=== PATIENT | female | born 1955 | race Caucasian/White ===

== ENCOUNTER 2017-12-24 00:44 | Inpatient (IN) | payer OTHER ==
[2017-12-24] MEDS ORDERED: Aspirin 81 mg CHEW TAB* 81 MG TAB.CHEW ONE (01:06)
[2017-12-24] MEDS ORDERED: Heparin VIAL(*) 5000 UNITS/ML VIAL (FIVE THOUSAND) ONE (01:06)
[2017-12-24] MEDS ORDERED: Ondansetron INJ* 2 MG/ML VIAL IV ONE (01:10)
[2017-12-24] MEDS ORDERED: Aspirin 81 mg CHEW TAB* 81 MG TAB.CHEW PO ONE (01:10)
[2017-12-24] MEDS ORDERED: Heparin for STEMI(*) 5,000 UNITS/ML 1 ML VIAL IV ONE (01:14)
[2017-12-24 01:28] LABS: ABS Basophils 0.1 10^3/ul (0-0.2); ABS Eosinophils 0.3 10^3/ul (0-0.6); ABS Lymphocytes 3.8 10^3/ul (1.0-4.8); ABS Monocytes 0.5 10^3/ul (0-0.8); ABS Neutrophils 3.9 10^3/ul (1.5-7.7); ABS Nucleated RBC 0 10^3/ul; Eosinophil % 3.1 % (0-6); Hematocrit 30 % (35-47); Hemoglobin 9.9 g/dl (12.0-16.0); Lymphocyte % 44.6 % (25-47); Mean Corpuscular HGB Conc 33 g/dl (31-36); Mean Corpuscular Hemoglobin 27 pg (27-31); Mean Corpuscular Volume 82 fL (80-97); Mean Platelet Volume 7.3 um3 (7.4-10.4); Nucleated Red Blood Cells % 0; Platelet Count 332 10^3/ul (150-450); Red Blood Count 3.64 10^6/ul (4.0-5.4); Red Cell Distribution Width 14 % (10.5-15); White Blood Count 8.6 10^3/ul (3.5-10.8)
[2017-12-24] MEDS ORDERED: Ticagrelor* 90 MG TAB PO ONE ×3 (01:33→01:34)
[2017-12-24 01:40] LABS: INR 0.84 (0.77-1.02)
[2017-12-24] MEDS ORDERED: nitroGLYCERIN DRIP* 25,000 MCG/250 ML BTL ONE ×2 (01:44→02:04)
[2017-12-24 01:47] LABS: EGFR Non-African American 34.4 (>60)
[2017-12-24] MEDS ORDERED: fentaNYL* 50 MCG/ML 2 ML VIAL (100 MCG VIAL) ONE (02:03)
[2017-12-24] MEDS ORDERED: Midazolam* 1 MG/ML 10 ML VIAL (10 MG) ONE (02:03)
[2017-12-24] MEDS ORDERED: Iodixanol* (CONTRAST) 320 MG/ML 100 ML SDV ONE ×4 (02:04→03:24)
[2017-12-24] MEDS ORDERED: Lidocaine 1% INJ* 10 MG/ML 30 ML SDV ONE (02:04)
[2017-12-24] MEDS ORDERED: VERAPAMIL 2.5 MG/ML 2 ML VIAL ** 5 mg/2 ml ONE (02:04)
[2017-12-24] MEDS ORDERED: Heparin 2 UNITS/ML IVPREMIX* 3,000 ML IV ONE (02:04)
[2017-12-24] MEDS ORDERED: Heparin(*) 1000 UNIT/ML 10 ML VIAL CATH LAB IV ONE (02:05)
[2017-12-24] MEDS ORDERED: Bivalirudin(*) 250 MG VIAL ONE (02:16)
[2017-12-24] MEDS ORDERED: Eptifibatide IV (Load dose)(*) 2 MG/ML 10 ml VIAL ONE (02:46)
[2017-12-24] MEDS ORDERED: Eptifibatide (*) 100 ML ONE (02:48)
[2017-12-24] MEDS ORDERED: Adenosine* 3 MG/ML VIAL ONE (03:10)
[2017-12-24] MEDS ORDERED: NitroPRUSSide* 25 MG/ML 2 ML VIAL IVPB ONE (03:12)
[2017-12-24] MEDS ORDERED: Nitroglycerin TAB 0.4 MG* 0.4 MG TAB SL PRN (04:07)
[2017-12-24] MEDS ORDERED: NS 0.9% 1000 ML* 1,000 ML IV SCH (04:15)
[2017-12-24 05:22] LABS: ABS Basophils 0 10^3/ul (0-0.2); ABS Eosinophils 0.1 10^3/ul (0-0.6); ABS Lymphocytes 1.7 10^3/ul (1.0-4.8); ABS Monocytes 0.4 10^3/ul (0-0.8); ABS Neutrophils 7.6 10^3/ul (1.5-7.7); ABS Nucleated RBC 0 10^3/ul; Eosinophil % 0.9 % (0-6); Hematocrit 31 % (35-47); Hemoglobin 10.4 g/dl (12.0-16.0); Lymphocyte % 17.4 % (25-47); Mean Corpuscular HGB Conc 33 g/dl (31-36); Mean Corpuscular Hemoglobin 27 pg (27-31); Mean Corpuscular Volume 82 fL (80-97); Mean Platelet Volume 7.3 um3 (7.4-10.4); Nucleated Red Blood Cells % 0; Platelet Count 352 10^3/ul (150-450); Red Blood Count 3.81 10^6/ul (4.0-5.4); Red Cell Distribution Width 14 % (10.5-15); White Blood Count 9.9 10^3/ul (3.5-10.8)
--- NOTE | 2017-12-24 05:35 | CONSULT ---
Consult Consult: 12/24/17 [id number] HOSPITALIST CONSULT: Requesting Provider: Dr. Alexis Reason for Consultation: medical co-management HPI: Ms Chaudhry is a 62 yo F who has a h/o type II DM, HTN, HLD and hypothyroidism who presented to the ER with c/o CP and diaphoresis. She ate dinner the night prior to admission and developed severe indigestion. She tried tums but it did not go away. She went to bed and then woke up around MN drenched in sweat. She got up to go to the bathroom but felt like she was going to pass out on the way there. She continued to have the CP but felt it in her arms as well. Her brought her to the ER where she was identified to be having a STEMI. She was [facility] emerg[facility] to [facility] where she had [address] Alexis has asked for a hospitalist consult for medical co- management. Currently the patient is feeling tired. She states she does not have chest pain but feels as if she can not take a deep breath. She does not feel SOB. She has no groin pain. PMHx: type II DM, HTN, HLD, hypothyroidism, systolic murmur, PCOS, anemia and stage III CKD PSHx: laprascopic abd surgery, L achilles tendon repair, Csection x3, cholecystectomy, ventral hernia repair, R knee arthroscopic surgery All: epinephrine, codeine Meds: Reviewed and reconciled FamHx: Mom is , she had a h/o CVA, HTN and Alzheimers. Dad is living at 91 and healthy. 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 3 grown children. ROS: As per HPI and otherwise negative. PE: BP 97/53 HR 80 RR 17 T 98.6 O2 sat 97% on 5L gen: well developed middle aged obese female lying flat in bed, NAD HEENT: PERRL, EOMI, oropharynx is clear, oral mucosa is moist, no submandibular , cervical or supraclavicular adenopathy noted. Card: Nl S1 S2 RRR, harsh III/ systolic murmur, no LE edema Pulm: lungs CTA anteriorly Abd: BS+ soft, ND, mild tenderness Musculoskeletal: full UE ROM, LE not tested Skin: warm, dry, no rashes, mild bruising noted on abdominal wall Neuro: CN II-XII intact, sensation intact to light touch, strength not tested at this time. Psych: A&O x3. Labs: WBC 9.9 Hb 10.4 Hct 31 Plt 352 Na 133 K 4.4 Cl 100 CO2 26 BUN 34 Cr 1.32 Gluc 273 AST 173 ALT 30 Alk Phos 33 Trop 0.02 to 22.91 INR 0.84 Chol 167 Trig 188 HDL 45.6 LDL 84 A/P: Ms Chaudhry is a 62 yo F who has a h/o type II DM, HTN, obesity, stage III CKD and HLD who presented to the ER with c/o CP and was identified to be having a STEMI and taken emergently to the [facility]. 1. STEMI: management per Dr Alexis. 2. Type II DM: will continue home regimen except for metformin for now and change diet to heart healthy and consistent carb. She states lately her sugars have not been under optimal control. Will monitor first few finger sticks then make adjustments to her regimen if needed. Check HbA1c. 3. Stage III CKD: Will need to follow creatinine closely. We do not have any recent labs to compare to. Monitor as pt received dye load for cath. 4. HTN: Resume lisinopril and diltiazem CD. Will place hold parameters on the medications. 5. HLD: Continue Lipitor 40mg qHS. 6. Hypothyroidism: Continue home dose of synthroid. TSH is ordered. 7. Anemia of CKD: will follow H/H. No recent labs to compare. 8. DVT-P: per Dr. Alexis 9. Full code
[2017-12-24] MEDS ORDERED: Dextrose 50% Syringe 50 ML* 25 GM/50 ML SYRINGE IV PUSH PRN (05:42)
[2017-12-24 05:44] LABS: EGFR Non-African American 40.8 (>60)
[2017-12-24] MEDS: Levothyroxine TAB* 150 MCG TAB PO SCH (06:23)
--- NOTE | 2017-12-24 07:56 | RAD ---
INDICATION: Chest pain COMPARISON: None. TECHNIQUE: Single AP portable view of the chest was obtained. FINDINGS: Image quality is compromised due to the relative inferiority of a portable chest x-ray. The heart and mediastinum exhibit normal size and contour. The lungs are grossly clear. There is no evidence of a large pleural effusion. Visualized bones are normal for the patient's age. IMPRESSION: No radiographic evidence for acute cardiopulmonary abnormality on this portable chest x-ray.
[2017-12-24] MEDS: Insulin LISPRO* 1 UNITS UNIT SUBCUT SCH ×7 (08:31→21:48)
[2017-12-24] MEDS: Aspirin 81 mg CHEW TAB* 81 MG TAB.CHEW PO SCH (08:32)
[2017-12-24] MEDS: Ticagrelor* 90 MG TAB PO SCH ×2 (08:32→21:19)
[2017-12-24] MEDS: Multivitamins/Minerals TAB PO SCH (08:32)
[2017-12-24] MEDS: Metoprolol Succinate XL TAB* 25 MG PO SCH (08:32)
[2017-12-24] MEDS ORDERED: Lisinopril TAB* 10 MG PO SCH (09:00)
[2017-12-24] MEDS ORDERED: Diltiazem CD CAP* 180 MG PO SCH ×2 (09:00)
[2017-12-24] MEDS: Lisinopril TAB* 10 MG PO SCH (10:57)
--- NOTE | 2017-12-24 12:20 | RAD ---
INDICATION: Shortness of breath. COMPARISON: Comparison is made with a prior study from December 24, 2017 from approximately 10 hours earlier. TECHNIQUE: A portable view of the chest was obtained. FINDINGS: The heart is within normal limits in size. The lungs are underinflated. There are faint patchy infiltrates present in the mid and lower lung medrano. IMPRESSION: NEW BILATERAL PATCHY INFILTRATES.
--- NOTE | 2017-12-24 12:39 | HP ---
CC: Dr. Elia Piedra * ADMISSION HISTORY AND PHYSICAL: DATE OF ADMISSION: 12/24/17 CHIEF COMPLAINT: The patient with chest burning sensation with bilateral arm and back discomfort with diaphoresis. EKG suggesting ST segment elevation, inferior- posterior wall myocardial infarction. HISTORY OF PRESENT ILLNESS: The patient is a 62-year-old female with no prior known history of coronary artery disease. She does reportedly have a history of a heart murmur, for which her family doctor is watching her along; a remote history of an echocardiogram, unobtainable at the time of seeing her. She was in usual state of health and after dinner at 6:30, she started developing an indigestion- type feeling. There was no significant radiation to the throat, jaw, arms, or back at that time. She also felt like she needed to have a bowel movement. These symptoms persisted on and off throughout the evening. She eventually went to bed. Going to bed, she took antacids at bedtime and it did not seem to help. When she woke up around midnight, she still had the indigestion, but now had radiation of the discomfort to her back and to both arms. She was diaphoretic as well. She discussed the symptoms with her and at 12:30 a.m., they decided to go to the emergency room. The initial EKG in the emergency room had subtle ST segment changes, minimally elevated in the inferior leads, not meeting STEMI criteria. There was ST segment downslope in an aVL only. Repeat EKG, however, clearly demonstrated ST segment elevation and a STEMI alert was called. I came in to see her and explained the risks and benefits of proceeding with cardiac catheterization, she understood them and wished to proceed. She had received heparin 4000 units and Brilinta 180 mg and a full-dose aspirin. PAST MEDICAL HISTORY: Significant for insulin-requiring diabetes mellitus. She has a history of hypertension, hypothyroidism, hyperlipidemia, and triglyceridemia. The heart murmurs as mentioned, polycystic kidney disease, ventral hernia, Lyme disease, anemia, osteoarthritis, renal insufficiency. CARDIAC RISK FACTORS: Included diabetes, hypertension, hyperlipidemia. She denied smoking history or significant family history of coronary artery disease. ALLERGIES: She has intolerance to EPINEPHRINE that when she gets at the dentist , she gets shaking and short of breath and it lasts for several minutes. She has an allergy to CODEINE, develops hallucinations. REVIEW OF SYSTEMS: Prior to proceeding to the cardiovascular laboratory, the patient reports a history of renal insufficiency, the exact level of which is unclear, although she was told by one doctor that her kidney was functioning at 35%, where normal was 50 (this may have been actually her GFR). She denies any history of hemoptysis, hematemesis, or hematuria. She has no known allergy to contrast. She has not had a stroke or TIA. PHYSICAL EXAMINATION IN THE EMERGENCY ROOM VITAL SIGNS: Revealed blood pressure 150 to as high as 180 in the emergency room/80-90, pulse was 70-80, respirations 20. HEENT: Conjunctivae minimally pale. Sclerae clear. NECK: Supple without increased JVP. Carotid had bilateral carotid bruit or transmitted murmur. LUNGS: Clear with no active rales, rhonchi, or wheezes. HEART: Revealed no visible heaves, no palpable heaves or thrills. A harsh 3/6 systolic murmur was appreciated. There was a question of splitting of S2 on deep inspiration. ABDOMEN: Obese, soft, nontender. EXTREMITIES: Without significant edema. Peripheral pulses were intact. Femoral pulses noted without bruit. NEUROLOGIC: The patient is alert, oriented with normal mentation. MUSCULOSKELETAL: The patient moves all extremities appropriately. PSYCHOLOGICAL: The patient with appropriate affect for current situation. DIAGNOSTIC STUDIES/LAB DATA: A limited echo done unofficially at bedside showed inferior-posterior wall severe hypo to akinesis. The aortic valve was clearly thickened with restriction to opening, which appeared to be at least moderate in nature. No Doppler was obtainable on the current limited study. Laboratory results were pending at the time of proceeding to the cardiovascular laboratory. EKG #1 in the emergency room revealed sinus rhythm, heart rate 61, T-wave inversion in aVL with slight downsloping, minimally concave upward ST segment in III. EKG #2 showed more increased elevation in lead III and mild increased elevation in II and aVF and V6 with downsloping in I, aVL and ST segment depression seen in V1 and V2. EKG #3 prior to proceeding to the cardiac catheterization lab while this is being set up when the patient stated she felt better, still showed persistent ST segment changes. OVERALL ASSESSMENT: Mrs. Chaudhry now presents in the throes of an acute inferior- posterior wall myocardial infarction. She has appropriately gotten the heparin , aspirin, and Brilinta therapy. Further management will be made pending proceeding to the cardiovascular laboratory. The risks and benefits were explained, she understood them as did her and wished to proceed. [id number]/[facility] #: [id number] SANTY
[2017-12-24] MEDS ORDERED: Furosemide IV* 10 MG/ML 2 ML VIAL (20 MG) IV ONE (13:00)
[2017-12-24] MEDS: Atorvastatin* 40 MG TAB PO SCH (16:37)
[2017-12-24] MEDS ORDERED: Calcium Carbonate CHEW TAB* 500 MG (TUMS) PO PRN (17:17)
--- NOTE | 2017-12-24 19:58 | PN ---
Hospitalist Progress Note Date of Service: 12/24/17 Mrs. Chaudhry is a 62 yo female with a PMH of IDDM, HTN, HLD, who presented to the ER early in the morning today around 1230 am found to have a STEMI taken to the [facility] and is now s/p stent placement. Hospital medicine was asked to co- medical manage. She was seen this morning by Dr. Jacobsen. This evening I was following up for c/o of reflux and abdominal bloating. Patient was seen and evaluated at the bedside. She is found to be A+O x3 in NAD. She reports she was able to pass some gas and now feels better. She reports this is not unusual for her.She reports no BM in 1-2 days and feels constipated. She denies CP/SOB. VSS - review PE: A+O x3 in NAD Cardiac: s1s2, RRR, 3/6 systolic murmur Lungs: CTA b/l Abd: obese, soft, distended, no guarding, no tenderness, NL BS Neuro - no focal deficits noted. Pysch: appropriate Plan: STEMI - cards dispo, stable Diabetes - per nurse and pt her appetite is decreased - plan to reduce Lantus this evening and hold scheduled lispro if eating < 50% of meal Reflux/Abdominal bloating - per pt this is not uncommon for her. She feels better after passing gas. Encourage fluids. bowel regimen. DVTp: HSQ Will follow up in morning.
[2017-12-24] MEDS ORDERED: Docusate CAP* 100 MG PO PRN (20:11)
[2017-12-24] MEDS ORDERED: Insulin GLARGINE(*) 1 UNITS UNIT SUBCUT SCH ×2 (21:00)
[2017-12-24] MEDS: Heparin VIAL(*) 5000 UNITS/ML VIAL (FIVE THOUSAND) SUBCUT SCH (21:19)
[2017-12-24] MEDS ORDERED: Insulin LISPRO* 1 UNITS UNIT SUBCUT ONE (21:46)
[2017-12-25] MEDS: Levothyroxine TAB* 150 MCG TAB PO SCH (06:12)
[2017-12-25] MEDS: Heparin VIAL(*) 5000 UNITS/ML VIAL (FIVE THOUSAND) SUBCUT SCH ×3 (06:12→21:09)
[2017-12-25 06:46] LABS: ABS Basophils 0.1 10^3/ul (0-0.2); ABS Eosinophils 0 10^3/ul (0-0.6); ABS Neutrophils 9.9 10^3/ul (1.5-7.7); ABS Nucleated RBC 0 10^3/ul; Eosinophil % 0.3 % (0-6); Hematocrit 30 % (35-47); Hemoglobin 9.8 g/dl (12.0-16.0); Lymphocyte % 15.5 % (25-47); Mean Corpuscular HGB Conc 33 g/dl (31-36); Mean Corpuscular Hemoglobin 27 pg (27-31); Mean Corpuscular Volume 81 fL (80-97); Mean Platelet Volume 7.4 um3 (7.4-10.4); Nucleated Red Blood Cells % 0.1; Platelet Count 314 10^3/ul (150-450); Red Blood Count 3.64 10^6/ul (4.0-5.4); Red Cell Distribution Width 14 % (10.5-15)
[2017-12-25 07:04] LABS: EGFR Non-African American 42.6 (>60)
[2017-12-25] MEDS: Insulin LISPRO* 1 UNITS UNIT SUBCUT SCH ×7 (08:02→21:08)
[2017-12-25] MEDS: Ticagrelor* 90 MG TAB PO SCH ×2 (08:19→21:09)
[2017-12-25] MEDS: Lisinopril TAB* 10 MG PO SCH (08:20)
[2017-12-25] MEDS: Metoprolol Succinate XL TAB* 25 MG PO SCH ×2 (08:20→21:09)
[2017-12-25] MEDS: Multivitamins/Minerals TAB PO SCH (08:20)
[2017-12-25] MEDS: Aspirin 81 mg CHEW TAB* 81 MG TAB.CHEW PO SCH (08:20)
[2017-12-25] MEDS ORDERED: Perflutren Lipid Microsphere* 3 ML VIAL ONE (08:36)
--- NOTE | 2017-12-25 11:00 | ECHO ---
Patient: LEXX REINOSO [facility] Rec#: [id number] : 1955 Date: 12/25/2017 Age: 62y Weight: kg / NaN lbs Sex: F Room#: ICU 6 Admit Date#: 12/25/2017 Type: Inpatient Referring: Paul Alexis MD Reading: Paul Alexis MD Filler Shredder Machine: Alyssa Zayas RN [facility] Transthoracic Echocardiogram Indication: Inferior/posterior wall STEMI S/P PCI, Aortic stenosis BP: 130/66 HR: 83 Rhythm: NSR with PVCs Findings History: HTN, DM, HLD, hypothyroidism, , anemia, CKD, obesity Technical Comments: The study quality is fair. The study is technically limited due to patient body habitus. Left Ventricle: The left ventricular chamber size is normal. Moderate concentric left ventricular hypertrophy is observed. There is a focal wall motion abnormality present.There is virtual akinesis to the mid to low posterolateral wall. There is moderately decreased left ventricular systolic function. The estimated ejection fraction is 40-45%. Abnormal left ventricular diastolic function is observed. Left Atrium: The left atrium is moderate to severely dilated. Right Ventricle: The right ventricular cavity size is normal. The right ventricular global systolic function is low normal. Right Atrium: The right atrial cavity size is normal. Aortic Valve: The aortic valve is trileaflet. The aortic valve leaflets are moderately thickened. Systolic excursion of the aortic valve cusps is reduced. There is aortic annular calcification. There is mild aortic regurgitation. There is severe aortic stenosis. The mean gradient of the aortic valve is 42.3 mmHg. The peak instantaneous gradient of the aortic valve is 70.2 mmHg. The aortic valve area, by peak velocities, is calculated at 0.8 cm2. The aortic valve area, by VTI's, is calculated at 0.7 cm2. Highest aortic valve velocity was acquired with Pedoff in right sternal border position. Mitral Valve: Moderate mitral annular calcification present. The mitral valve leaflets are mildly thickened. There is mild mitral regurgitation. There is mild mitral stenosis. The mean gradient across the mitral valve is 3.9 mmHg. Tricuspid Valve: The tricuspid valve leaflets are not thickened. There is trace to mild tricuspid regurgitation. Unable to estimate the right ventricular systolic pressure. There is no tricuspid stenosis. Pulmonic Valve: The pulmonic valve structure is not well visualized. There is a trace pulmonic regurgitation. There is no pulmonic stenosis. Pericardium: There is no significant pericardial effusion. A pericardial fat pad is visualized. Aorta: There is no dilatation of the ascending aorta. There is no dilatation of the aortic arch. There is no dilation of the aortic root. Pulmonary Artery: The main pulmonary artery is not well visualized. Venous: The inferior vena cava is dilated. There is a greater than 50% respiratory change in the inferior vena cava dimension. Contrast: Definity was used to optimize study. A total of 5 ml of diluted Definity was given IV. Conclusions Moderate concentric left ventricular hypertrophy is observed. There is a focal wall motion abnormality present.There is virtual akinesis to the mid to low posterolateral wall. There is moderately decreased left ventricular systolic function. The estimated ejection fraction is 40-45%. Abnormal left ventricular diastolic function is observed. The left atrium is moderate to severely dilated. There is mild aortic regurgitation. There is severe aortic stenosis. The mean gradient of the aortic valve is 42.3 mmHg. The aortic valve area, by peak velocities, is calculated at 0.8 cm2. There is mild mitral regurgitation. There is mild mitral stenosis. The mean gradient across the mitral valve is 3.9 mmHg. There is trace to mild tricuspid regurgitation. No reports of prior studies are offered for comparison. There is a trace pulmonic regurgitation. Measurements Name Value Normal Range RVDdMajor (2D) 3.2 cm (2.2 - 4.4) RAd ISD 4CH 4.9 cm (3.4 - 4.9) RA (A4C)W 4 cm (2.9 - 4.6) IVSd (2D) 1.5 cm (0.6 - 1) LVPWd (2D) 1.2 cm (0.6 - 1) LVIDd (2D) 4.6 cm (3.6 - 5.4) LVIDs (2D) 3.9 cm - LV FS (2D) 15 % (25 - 45) Aortic Annulus 2.2 cm (1.4 - 2.6) Ao root diameter (2D) 2.8 cm (2.1 - 3.5) Ascending Ao 3.1 cm (2.1 - 3.4) Aortic arch 2.6 cm (1.8 - 3.4) LA dimension (AP) 2D 4.3 cm (2.3 - 3.8) LAd ISD 4CH 5.7 cm (2.9 - 5.3) LA ISD 4CH W 5.4 cm (2.5 - 4.5) Name Value Normal Range LA ESV SP 4CH (A/L) 118 ml - LA ESV SP 2CH (A/L) 113 ml - LA ESV BP (A/L) 119 ml - LA ESV BP (A/L) index 58.8 ml/m2 - LA ESV SP 4CH (MOD) 114 ml - LA ESV SP 2CH (MOD) 105 ml - Name Value Normal Range MV E-wave Vmax 1.4 m/sec - MV deceleration time 199 msec - MV A-wave Vmax 1.2 m/sec - MV E:A ratio 1.2 ratio - LV septal e' Vmax 0.06 m/sec - LV lateral e' Vmax 0.06 m/sec - LV E:e' septal ratio 23.3 ratio - LV E:e' lateral ratio 23.3 ratio - Name Value Normal Range AV Vmax 4.2 m/sec - AV VTI 96.9 cm - AV peak gradient 70.2 mmHg - AV mean gradient 42.3 mmHg - LVOT diameter 2 cm - LVOT Vmax 1 m/sec - LVOT VTI 21.8 cm - LVOT peak gradient 4.3 mmHg - LVOT mean gradient 2.4 mmHg - DOI (VTI) 0.22 ratio - DOI (Vmax) 0.24 ratio - KASANDRA (continuity Vmax) 0.8 cm2 - KASANDRA (continuity VTI) 0.7 cm2 - DORI Vmax 1.1 m/sec - Name Value Normal Range MV Vmax 1.6 m/sec - MV VTI 40.4 cm - MV peak gradient 10.7 mmHg - MV mean gradient 3.9 mmHg - MV PHT 77.3 msec - MVA (PHT) 2.8 cm2 - MVA (continuity VTI) 1.8 cm2 - Name Value Normal Range IVC diameter 2.4 cm - Name Value Normal Range PV Vmax 0.72 m/sec -
[2017-12-25] MEDS ORDERED: Potassium Chlor TAB* 20 MEQ TAB.ER PO ONE (11:46)
[2017-12-25] MEDS ORDERED: Magnesium Sulfate 2 GM IV* 2 GM/50 ML BAG IVPB ONE (13:28)
[2017-12-25] MEDS ORDERED: Magnesium Oxide TAB* 400 MG PO ONE (13:49)
--- NOTE | 2017-12-25 13:56 | CATH ---
ADDENDUM: CARDIAC CATHETERIZATION AND INTERVENTIONAL REPORT: DATE OF PROCEDURE: 12/24/17 A. Thrombectomy, balloon angioplasty, and placement of a 3.5 x 28 mm long Synergy drug-eluting stent post dilated at 3.7 mm reconstituting 100% occlusion with residual stenosis of less than 10% with TI NE 2 to 3 flow. B. Primary stenting of mid portion of first obtuse marginal branch utilizing a 2.75 x 16 mm long Syn ergy drug-eluting stent dilated to high pressures to obtain 2.85 mm with 0% residual stenosis with TI NE 2 to 3 flow. Of note, possible distal cutoff still noted in the furthest portion of the upper bif urcating portion despite giving Integrilin bolus and Integrilin drip in the director geophysical laboratory. OVERALL ASSESSMENT: Significant single-vessel disease involving totally occluded proximal circumflex with heavy thrombotic, possibly dissected occlusion treated with thrombectomy, balloon angioplasty a nd stenting in multiple sites with congregational of GARRY 2 to 3 flow, but not complete GARRY 3 flow and possible distal obstruction to furthest portion of circumflex. At this point in time, we will contin ue dual antiplatelet therapy and will be managing hemodynamics and possible presence of congestive he art failure in the setting of at least [id number] aortic stenosis noted on left heart pullbac k performed during left coronary artery catheter placement. We will get a formal echo to assess LV f unction and aortic valve function within the next 24 to 48 hours. Of note, given the patient's histo ry of renal insufficiency, we will continue hydration for hours and monitor closely the BUN and creat inine on her. She is an insulin-requiring diabetic, who is also on metformin, which obviously will n ot be restarted. We will ask the hospitalist to manage her diabetes. We will check her cholesterol and make sure it is within guideline range and maintain her on her current statin agent. We will hol d off on the MATT inhibitor at this point given the contrast given as well as the fact that she is a d iabetic and that she has renal insufficiency until we see how her creatinine stabilizes and how sever e her aortic stenosis is. [id number]/[facility] #: [id number]
--- NOTE | 2017-12-25 15:36 | CATH ---
CC: Dr. Elia Piedra* CARDIAC CATHETERIZATION REPORT: DATE OF PROCEDURE: 12/24/17 INDICATION FOR THE PROCEDURE: The patient presents with ST segment elevation inferior-posterior wall myocardial infarction. PROCEDURE: Coronary arteriography, left heart catheterization, balloon angioplasty, thrombectomy, placement of a 3.5 x 28 mm long Synergy drug- eluting stent post dilated to 3.7 mm in the proximal circumflex into the first obtuse marginal branch and placement of a 2.75 x 16 mm long Synergy drug- eluting stent in the mid portion of the first obtuse marginal branch and then Mynx closure device to the right femoral artery site. DESCRIPTION OF PROCEDURE: The patient was interviewed and examined in the emergency room where the risks and benefits were explained. She understood them and wished to proceed. MEDICATIONS GIVEN: 4000 units of heparin, 324 mg of aspirin, and 108 mg of ticagrelor in the emergency room prior to presenting to the veterinary laboratory technician. Angiomax bolus and a transient Integrilin drip for persistent thrombotic occlusion. Nipride and adenosine locally delivered to distal first obtuse marginal branch for no-flow phenomenon. EQUIPMENT UTILIZED: 1. Right femoral sheath - 6.5 Bangladeshi Merit Prelude sheath. 2. Diagnostic coronary catheter FL 4 curve 5-Bangladeshi and FR 4 curve 5-Bangladeshi catheters. 3. Guiding view catheter a VL 3.5 curve 6-Bangladeshi guide catheter with side holes. 4. Guidewires utilized - a 190 and 300 length All-Star in addition to a BMW regular length. 5. Thrombectomy catheter, a Pronto V4 extraction catheter. 6. Balloon angioplasty catheters Emerge 1.5 x 12 and a 3.5 x 20 balloon. 7. Drug-eluting stents - 3.5 x 28 mm long Synergy in the proximal circumflex into the first obtuse marginal branch, 2.75 x 60 mm long Synergy drug-eluting stent in the mid portion of the first obtuse marginal branch. 8. Distal perfusion catheter for local drug administration - Twin-Pass micro catheter. 9. Closure device utilized - a 6/7 Bangladeshi Mynx closure device. PROCEDURE IN DETAIL: The patient was prepped and draped in sterile fashion. Formal time-out was performed. The right femoral artery area was anesthetized with 1% lidocaine and cannulated and sheath was placed. Diagnostic imaging was performed to the left and the right coronary artery following which decision was made to intervene into the totally occluded proximal circumflex. Guiding catheter was passed. ACT was checked and found to be subtherapeutic. Angiomax bolus was given and Angiomax drip was started. Initial attempts were made utilizing a 190cm length guide wire and were not able to pass across the occlusion. This was exchanged for an exchange length guide wire and utilizing a 1.5 x 12 mm long Emerge balloon for extra support the wire was able to be placed through the total occlusion. Balloon angioplasty was performed in the initial area, but faith of flow was not successful. Decision was made to pursue thrombectomy and a Pronto V4 catheter was utilized for this. Following this, there was flow noted albeit a GARRY 1 flow and the area appeared to be outlined in the proximal stenotic airway. Balloon angioplasty was then performed with a 3.5 x 28 mm long Emerge balloon. Following this, flow had improved to GARRY 1 to 2 flow. A Twin-Pass catheter was then placed to give local delivery of Nipride cautiously. Follow this, an area was defined in the mid segment of the obtuse marginal branch with compromise and this area was primary stented utilizing a 2.75 x 16 mm long Synergy drug-eluting stent. This distal stent was deployed to very high pressures. Following this, the high- pressure inflations were made to the more proximal stented area. Of note, following this, adenosine was also administered intracoronary in an attempt to improve flow which appeared to improve to at least GARRY 2 to 3 flow. At the end of the case, an injection was made into the right femoral sheath to assess the eligibility to utilize closure device. It was found to be a acceptable for this and as such a 6/7 Bangladeshi Mynx closure device was deployed with good hemostasis. The total contrast used was 278 cc of Visipaque dye. The radiation exposure included 23.1 minutes of fluoro time. The air kerma radiation was 3828 mGy. The DAP radiation was 22,888 microgray per meter squared. RESULTS: LEFT HEART CATHETERIZATION: - of note, when proceeding with left coronary arteriography, the left coronary catheter was initially found to be in the left ventricle. At that time , the decision was made to record the pressure and then perform pullback. The left ventricular pressure was found to be 190 over the left ventricular end diastolic pressure of 35 to 40. Left ventricular pressure on pullback was found to be 157/76 with a mean of 112. CORONARY ARTERIOGRAPHY: A. Left coronary artery: 1. Left main - widely patent with no significant stenosis. 2. Left anterior descending artery - the left anterior descending artery traversed toward the apical region on to the distal inferior wall. The midportion of the left anterior descending artery was intramyocardial. There was no profound muscle bridging noted. There was no significant obstruction seen throughout the course of the vessel. It supplied a first and second diagonal branch, which appeared to be somewhat thin, small in caliber, but no significant stenosis was seen throughout the course of these vessels. 3. Circumflex artery - totally occluded at its ostium on initial injection. A trifurcation marginal branch was noted without significant disease. On reconstitution of the circumflex vessel, it supplied a very large first obtuse marginal branch after which it continued in the AV groove to supply distally, very small caliber, thread-like, low lying posterior left ventricular branches that were somewhat short in nature. B. Right coronary artery - a dominant vessel supplying the PDA, which extended towards the apical region, but not fully to it. The continuation of the right coronary supplied small thread-like posterior left ventricular branches. There were no significant luminal irregularities noted. Of note with all the coronary arteries, there was corkscrew appearance to them suggesting the presence of left ventricular hypertrophy. INTERVENTION INTO TOTALLY OCCLUDED PROXIMAL CIRCUMFLEX: A. Thrombectomy, balloon angioplasty, and placement of a 3.5 x 28 mm long Synergy drug-eluting stent post dilated at 3.7 mm reconstituting 100% occlusion with residual stenosis of less than 10% with GARRY 2 to 3 flow. B. Primary stenting of mid portion of first obtuse marginal branch utilizing a 2.75 x 16 mm long Synergy drug-eluting stent dilated to high pressures to obtain 2.85 mm, reducing a hazy 85% lesion to 0% residual stenosis with eventual GARRY 2 to 3 flow. Of note, distal cutoff was still noted in the furthest portion of the upper bifurcating portion despite giving Integrilin bolus and Integrilin drip in the veterinary laboratory technician. OVERALL ASSESSMENT: Significant single-vessel disease involving totally occluded proximal circumflex with heavy thrombotic, possibly dissected occlusion treated with thrombectomy, balloon angioplasty and stenting in multiple sites with faith of GARRY 2 to 3 flow, but not complete GARRY 3 flow and possible distal obstruction to furthest portion of circumflex. At this point in time, we will continue dual antiplatelet therapy and will be managing hemodynamics and possible presence of congestive heart failure in the setting of at least odriinqd-qm-lcyzld aortic stenosis noted on left heart pullback performed during left coronary artery catheter placement. We will get a formal echo to assess LV function and aortic valve function within the next 24 to 48 hours. Of note, given the patient's history of renal insufficiency, we will continue hydration for hours and monitor closely the BUN and creatinine on her. She is an insulin-requiring diabetic, who is also on metformin, which obviously will not be restarted. We will ask the hospitalist to manage her diabetes. We will check her cholesterol and make sure it is within guideline range and maintain her on her current statin agent. We will hold off on the MATT inhibitor at this point given the contrast given as well as the fact that she is a diabetic and that she has renal insufficiency until we see how her creatinine stabilizes and how severe her aortic stenosis is. [id number]/[facility] #: [id number]/[facility] #: [id number] SANTY
[2017-12-25] MEDS: Atorvastatin* 40 MG TAB PO SCH (17:43)
--- NOTE | 2017-12-25 18:24 | PN ---
Subjective Date of Service: 12/25/17 Interval History: Patient reports she feels much much better. She states she feels a little fatigued and quite a 100% yet but overall feels "pretty good". She denies CP or SOB. reports her appetiet is improving. her abdominal bloating and gas has improved. Still no BM today. Objective Active Medications: Aspirin (Aspirin 81 Mg Chew Tab*) 81 mg PO DAILY [facility] Last Admin: 12/25/17 08:20 Dose: 81 mg Atorvastatin Calcium (Lipitor*) 40 mg PO 1700 [facility] Last Admin: 12/25/17 17:43 Dose: 40 mg Calcium Carbonate (Tums*) 500 mg PO Q4H PRN PRN Reason: INDIGESTION Last Admin: 12/24/17 17:45 Dose: 500 mg Dextrose (D50w Syringe 50 Ml*) 12.5 gm IV PUSH .FOR FS < 60 - SS PRN PRN Reason: FS < 60 Docusate Sodium (Colace Cap*) 100 mg PO DAILY PRN PRN Reason: CONSTIPATION Heparin Sodium (Porcine) (Heparin Vial(*)) 5,000 units SUBCUT Q8HR [facility] Last Admin: 12/25/17 13:00 Dose: 5,000 units Sodium Chloride (Ns 0.9% 1000 Ml*) 1,000 mls @ 0 mls/hr IV .per rate [facility] PRN Reason: KVO Last Admin: 12/24/17 06:23 Dose: 100 mls/hr Insulin Glargine (Lantus(*)) 30 units SUBCUT BEDTIME [facility] Last Admin: 12/24/17 21:18 Dose: 30 units Insulin Human Lispro (Humalog*) 10 units SUBCUT AC [facility] Last Admin: 12/25/17 17:42 Dose: 10 units Insulin Human Lispro (Humalog*) 0 units SUBCUT ACHS [facility] PRN Reason: Protocol Last Admin: 12/25/17 17:41 Dose: 6 units Levothyroxine Sodium (Synthroid Tab*) 150 mcg PO DAILY@0600 [facility] Last Admin: 12/25/17 06:12 Dose: 150 mcg Lisinopril (Prinivil Tab*) 20 mg PO DAILY [facility] Last Admin: 12/25/17 08:20 Dose: 20 mg Metoprolol Succinate (Toprol Xl Tab*) 25 mg PO BID [facility] Multivitamins/Minerals (Theragran/Minerals Tab*) 1 tab PO DAILY [facility] Last Admin: 12/25/17 08:20 Dose: 1 tab Nitroglycerin (Nitroglycerin Tab 0.4 Mg*) 0.4 mg SL Q5M PRN PRN Reason: ANGINA Ticagrelor (Brilinta*) 90 mg PO BID [facility] Last Admin: 12/25/17 08:19 Dose: 90 mg Vital Signs - 8 hr 12/25/17 12/25/17 12/25/17 11:00 12:00 13:00 Temperature 98 F Pulse Rate 77 92 85 Respiratory 21 20 15 Rate Blood Pressure 145/77 141/77 139/72 (mmHg) O2 Sat by Pulse 93 94 97 Oximetry 12/25/17 12/25/17 12/25/17 14:00 14:01 15:00 Temperature Pulse Rate 77 84 80 Respiratory 14 15 19 Rate Blood Pressure 129/82 132/61 (mmHg) O2 Sat by Pulse 97 97 94 Oximetry 12/25/17 12/25/17 12/25/17 16:00 16:04 16:06 Temperature 98.2 F Pulse Rate 84 Respiratory 21 21 21 Rate Blood Pressure 134/72 (mmHg) O2 Sat by Pulse 99 Oximetry 12/25/17 12/25/17 12/25/17 17:00 17:01 18:00 Temperature Pulse Rate 81 80 81 Respiratory 22 17 19 Rate Blood Pressure 130/71 (mmHg) O2 Sat by Pulse 97 97 95 Oximetry Oxygen Devices in Use Now: None Appearance: 62 yo female sitting up in a chair in NAD. A+Ox3 Eyes: No Scleral Icterus, PERRLA Ears/Nose/Mouth/Throat: NL Teeth, Lips, Gums, Mucous Membranes Moist Neck: NL Appearance and Movements; NL JVP Respiratory: Symmetrical Chest Expansion and Respiratory Effort, Clear to Auscultation Cardiovascular: RRR, No Edema, - - 3/6 systolic murmur noted Abdominal: NL Sounds; No Tenderness; No Distention Extremities: No Edema, No Clubbing, Cyanosis Skin: No Rash or Ulcers, No Nodules or Sclerosis Neurological: Alert and Oriented x 3, NL Sensation, NL Gait, NL Muscle Strength and Tone Lines/Tubes/Other Access: Clean, Dry and Intact Peripheral IV Nutrition: Taking PO's Result Diagrams: 12/25/17 06:28 12/25/17 06:28 Microbiology and Other Data: Microbiology 12/24/17 05:14 Nasal Screen MRSA (PCR)(IGOR) - Final Nasal Mrsa Not Detected Assess/Plan/Problems-Billing Assessment: 62 yo female with PMH of DM II, HTN, HLD, hypothyroidism and obesity that presented on 12/24 with c/o CP and diaphoresis found to have a STEMI - inferior-posterior wall PA and taken emergently to the greens laborer where she had two stents placed - - Patient Problems (1) STEMI (ST elevation myocardial infarction) Comment: - overall doing very well. - totally occluded proximal circumflex s/p thrombectomy, balloon angioplasty with placement of 2 drug eluding stents placed. -Echo showing EF 40-45% with diastolic dysfunction, severe - continue dual anti-platelet therapy with ASA & Brilinta, BB, statin, (2) Severe aortic stenosis Comment: - Pt has been fairly asymptomatic to this and reports she exerts herself heavily w/o SOB. - She will need to follow closely with cardiology as an outpt and at some point she will reuqire a AVR (3) Transaminitis Comment: - To be expected in the setting of stemi - Hepatitis panel - nonreactive - recheck in am (4) Diabetes Comment: - HgA1C 10.4 - Hold home oral metformin - Continue Lispro SS AC&HS and 10 units with meals (hold if eating <50% of meals ) - Lantus 40 units QHS (54 units at home) (5) HLD (hyperlipidemia) Comment: - continue statin (6) HTN (hypertension) Comment: - controlled. Hold home Lisinopril and cardizem. Metoprolol started by cardiology (7) CKD (chronic kidney disease) Comment: - Do not know baseline creatinine. Creatinine 1.3. recheck in am (8) Hypothyroid Comment: - continue synthroid (9) DVT prophylaxis Comment: HSQ Status and Disposition: inpatient. Continue ICCU with plan per Cards to tx to tele tomorrow.
[2017-12-25] MEDS ORDERED: Insulin GLARGINE(*) 1 UNITS UNIT SUBCUT SCH (21:00)
[2017-12-26] MEDS: Levothyroxine TAB* 150 MCG TAB PO SCH (05:52)
[2017-12-26] MEDS: Heparin VIAL(*) 5000 UNITS/ML VIAL (FIVE THOUSAND) SUBCUT SCH ×3 (05:52→20:53)
[2017-12-26 06:36] LABS: EGFR Non-African American 38.7 (>60)
[2017-12-26] MEDS: Insulin LISPRO* 1 UNITS UNIT SUBCUT SCH ×7 (08:12→20:47)
[2017-12-26] MEDS: Metoprolol Succinate XL TAB* 25 MG PO SCH ×2 (09:05→20:53)
[2017-12-26] MEDS: Ticagrelor* 90 MG TAB PO SCH ×2 (09:05→20:53)
[2017-12-26] MEDS: Aspirin 81 mg CHEW TAB* 81 MG TAB.CHEW PO SCH (09:06)
[2017-12-26] MEDS: Multivitamins/Minerals TAB PO SCH (09:06)
[2017-12-26] MEDS: Atorvastatin* 40 MG TAB PO SCH (17:02)
--- NOTE | 2017-12-26 17:07 | PN ---
Subjective Date of Service: 12/26/17 Interval History: patient reports she feels "even better today" and hopes to go home tomorrow. She denies SOB/CP. reports her abdominal bloating is much better and had a BM today. Reports her appetite is improving. Objective Active Medications: Aspirin (Aspirin 81 Mg Chew Tab*) 81 mg PO DAILY [facility] Last Admin: 12/26/17 09:06 Dose: 81 mg Atorvastatin Calcium (Lipitor*) 40 mg PO 1700 [facility] Last Admin: 12/26/17 17:02 Dose: 40 mg Calcium Carbonate (Tums*) 500 mg PO Q4H PRN PRN Reason: INDIGESTION Last Admin: 12/24/17 17:45 Dose: 500 mg Dextrose (D50w Syringe 50 Ml*) 12.5 gm IV PUSH .FOR FS < 60 - SS PRN PRN Reason: FS < 60 Docusate Sodium (Colace Cap*) 100 mg PO DAILY PRN PRN Reason: CONSTIPATION Heparin Sodium (Porcine) (Heparin Vial(*)) 5,000 units SUBCUT Q8HR [facility] Last Admin: 12/26/17 15:04 Dose: 5,000 units Insulin Glargine (Lantus(*)) 54 units SUBCUT BEDTIME [facility] Insulin Human Lispro (Humalog*) 0 units SUBCUT ACHS [facility] PRN Reason: Protocol Last Admin: 12/26/17 16:58 Dose: Not Given Insulin Human Lispro (Humalog*) 10 units SUBCUT AC [facility] Last Admin: 12/26/17 17:01 Dose: 10 units Levothyroxine Sodium (Synthroid Tab*) 150 mcg PO DAILY@0600 [facility] Last Admin: 12/26/17 05:52 Dose: 150 mcg Metoprolol Succinate (Toprol Xl Tab*) 25 mg PO BID [facility] Last Admin: 12/26/17 09:05 Dose: 25 mg Multivitamins/Minerals (Theragran/Minerals Tab*) 1 tab PO DAILY [facility] Last Admin: 12/26/17 09:06 Dose: 1 tab Nitroglycerin (Nitroglycerin Tab 0.4 Mg*) 0.4 mg SL Q5M PRN PRN Reason: ANGINA Ticagrelor (Brilinta*) 90 mg PO BID [facility] Last Admin: 12/26/17 09:05 Dose: 90 mg Vital Signs - 8 hr 0512/26/17 12/26/17 10:00 10:01 11:00 Temperature Pulse Rate 74 74 72 Respiratory 14 20 16 Rate Blood Pressure 98/46 105/56 (mmHg) O2 Sat by Pulse 97 97 95 Oximetry 12/26/17 12/26/17 12/26/17 12:00 12:01 13:00 Temperature 98.5 F Pulse Rate 73 73 Respiratory 15 13 13 Rate Blood Pressure 94/42 (mmHg) O2 Sat by Pulse 94 96 Oximetry 12/26/17 12/26/17 12/26/17 14:08 14:30 16:50 Temperature 97.3 F 99.7 F Pulse Rate 74 69 Respiratory 93 19 18 Rate Blood Pressure 99/46 97/55 (mmHg) O2 Sat by Pulse 99 100 Oximetry Oxygen Devices in Use Now: None Appearance: obese 62 yo female sitting up in a chair eating dinner in NAD. A+O x3 Eyes: No Scleral Icterus, PERRLA Ears/Nose/Mouth/Throat: NL Teeth, Lips, Gums, Mucous Membranes Moist Neck: NL Appearance and Movements; NL JVP Respiratory: Symmetrical Chest Expansion and Respiratory Effort, Clear to Auscultation Cardiovascular: RRR, No Edema, - - 3/6 systolic murmur Abdominal: NL Sounds; No Tenderness; No Distention, - - obese Extremities: No Edema, No Clubbing, Cyanosis Skin: No Rash or Ulcers, No Nodules or Sclerosis Neurological: Alert and Oriented x 3, NL Sensation, NL Gait, NL Muscle Strength and Tone Lines/Tubes/Other Access: Clean, Dry and Intact Peripheral IV Nutrition: Taking PO's Result Diagrams: 12/25/17 06:28 12/26/17 06:00 Microbiology and Other Data: Microbiology 12/24/17 05:14 Nasal Screen MRSA (PCR)([facility]) - Final Nasal Mrsa Not Detected Assess/Plan/Problems-Billing Assessment: 62 yo female with PMH of DM II, HTN, HLD, hypothyroidism and obesity that presented on 12/24 with c/o CP and diaphoresis found to have a STEMI - inferior-posterior wall CT and taken emergently to the circus laborer where she had two stents placed - - Patient Problems (1) STEMI (ST elevation myocardial infarction) Comment: - overall doing very well. - totally occluded proximal circumflex s/p thrombectomy, balloon angioplasty with placement of 2 drug eluding stents placed. -Echo showing EF 40-45% with diastolic dysfunction, severe (NEW DX) - continue dual anti-platelet therapy with ASA & Brilinta, BB, statin, (2) Severe aortic stenosis Comment: - Pt has been fairly asymptomatic to this and reports she exerts herself heavily w/o SOB. - She will need to follow closely with cardiology as an outpt and at some point she will reuqire a AVR (3) Transaminitis Comment: - To be expected in the setting of stemi - trending down (4) Diabetes Comment: - HgA1C 10.4 - Hold home oral metformin - Continue Lispro SS AC&HS and 10 units with meals - Restart Lantus 54 units home dose tonight - [facility] (5) HLD (hyperlipidemia) Comment: - continue statin (6) HTN (hypertension) Comment: - controlled. Hold home Lisinopril and cardizem. Metoprolol started by cardiology (7) CKD (chronic kidney disease) Comment: - Do not know baseline creatinine. Creatinine 1.3, stable. (8) Hypothyroid Comment: - continue synthroid (9) DVT prophylaxis Comment: HSQ Status and Disposition: inpatient. Dispo per Interventional Cardiology.
[2017-12-26] MEDS ORDERED: Insulin GLARGINE(*) 1 UNITS UNIT SUBCUT SCH (21:00)
[2017-12-27] MEDS: Heparin VIAL(*) 5000 UNITS/ML VIAL (FIVE THOUSAND) SUBCUT SCH ×2 (05:46→14:08)
[2017-12-27] MEDS: Levothyroxine TAB* 150 MCG TAB PO SCH (05:46)
[2017-12-27 07:31] LABS: ABS Basophils 0.1 10^3/ul (0-0.2); ABS Eosinophils 0.2 10^3/ul (0-0.6); ABS Lymphocytes 2.4 10^3/ul (1.0-4.8); ABS Monocytes 0.9 10^3/ul (0-0.8); ABS Neutrophils 6.6 10^3/ul (1.5-7.7); ABS Nucleated RBC 0 10^3/ul; Eosinophil % 2.2 % (0-6); Hematocrit 26 % (35-47); Hemoglobin 8.9 g/dl (12.0-16.0); Lymphocyte % 23.3 % (25-47); Mean Corpuscular HGB Conc 34 g/dl (31-36); Mean Corpuscular Hemoglobin 28 pg (27-31); Mean Corpuscular Volume 82 fL (80-97); Mean Platelet Volume 7.4 um3 (7.4-10.4); Nucleated Red Blood Cells % 0.1; Platelet Count 316 10^3/ul (150-450); Red Cell Distribution Width 14 % (10.5-15); White Blood Count 10.1 10^3/ul (3.5-10.8)
[2017-12-27] MEDS: Insulin LISPRO* 1 UNITS UNIT SUBCUT SCH ×4 (07:35→12:28)
[2017-12-27 07:39] LABS: EGFR Non-African American 33.6 (>60)
[2017-12-27] MEDS: Multivitamins/Minerals TAB PO SCH (09:04)
[2017-12-27] MEDS: Aspirin 81 mg CHEW TAB* 81 MG TAB.CHEW PO SCH (09:04)
[2017-12-27] MEDS: Metoprolol Succinate XL TAB* 25 MG PO SCH (09:04)
[2017-12-27] MEDS: Ticagrelor* 90 MG TAB PO SCH (09:04)
[2017-12-27 12:41] VITALS: BP 100/52
--- NOTE | 2017-12-28 10:03 | DS ---
CC: Dr. Piedra; Dr. Alexis * DISCHARGE SUMMARY: DATE OF ADMISSION: 12/24/17. DATE OF DISCHARGE: 12/27/17. PRIMARY CARE PHYSICIAN: Dr. Piedra. RAIL OPERATIONS CONTROLLER: Dr. Alexis. DISCHARGE DIAGNOSES: 1. Acute inferior-posterior wall ST elevation infarct. 2. Aortic stenosis. 3. Diabetes type 2. 4. Obesity. 5. Hypertension. 6. Dyslipidemia. 7. Chronic kidney disease, stage III. 8. History of Lyme disease. 9. Chronic anemia. CONDITION ON DISCHARGE: Stable. PROCEDURES: Cardiac cath, stent placement in circumflex, Dr. Alexis, 3.5 x 28 Synergy stent circumflex, 2.75 x 16 Synergy drug-eluting stent OM1, right common femoral artery, MynxGrip closure, echocardiogram, telemetry. Consultation with the hospitalist service for diabetic management. CONDITION ON DISCHARGE: Stable. DISCHARGE INSTRUCTIONS: Wound care, shower only for 3 days, to avoid strenuous exertion for 1 week, to walk 30 minutes daily, followup wound check with Dr. Alexis, 01/01/18 at 1520 p.m. Blood test on Saturday, 12/30, result faxed to Dr. Alexis. Do not resume metformin until told to do so. DISCHARGE MEDICATIONS: New medication: 1. Metoprolol XL 25 mg b.i.d. 2. Brilinta 90 mg b.i.d. 3. Nitroglycerin 0.4 sublingual p.r.n. 4. To continue Lipitor 40 mg daily. 5. Aspirin 81 mg daily. 6. Calcium carbonate. 7. Fenofibrate 200 mg daily. 8. Her insulin regimen. 9. To discontinue lisinopril. HISTORY: See H and P. LABORATORY DATA: On 12/27; hemoglobin 8.9, hematocrit 26 with admission hemoglobin of 9.9. Chemistries, 12/27; sodium 138, potassium 3.9, BUN 32, creatinine 1.56, at baseline with admission creatinine of 1.53. Metformin is being held. Her Accu- Cheks ranged in the 100 to 200s, primarily in the hospital. Her CPK-MB peaked at 284.6. BNP was elevated at 522. Total cholesterol 167, triglycerides 188, LDL 84, HDL 45.6 with a TSH of 9.38. EKG on 12/27 shows low voltage in the limb leads and minor lateral precordial nonspecific ST changes. HOSPITAL COURSE: She presented with acute inferior-posterior ST elevation infarct, underwent catheterization by Dr. Alexis with a finding of an occluded circumflex, which was opened and stented. It contained a large amount of thrombus. Her CPK-MB peaked as above. EKG improved. She had no heart failure, recurrence of angina or arrhythmias. On exam, she had an aortic stenosis murmur , which on echo was found to represent significant aortic stenosis with estimated EF of 40% to 45%, mean aortic valve gradient of 42.3, peak aortic valve gradient of 70.2, valve area by peak velocity 0.8 cm squared and 0.7 cm squared by VTI. She had mild mitral stenosis as well. Her creatinine remained stable in the hospital, metformin has not yet been resumed, as she is getting another measure of creatinine next Saturday. On the day of discharge, she is asymptomatic and ambulatory, with stable vital signs. Blood pressure 100/52. Her MATT inhibitor was not restarted yet. Her lungs are clear, cardiac exam is normal, her right groin is unremarkable, she has no edema. [id number]/[facility] #: [id number] [facility]
--- NOTE | 2018-01-01 12:25 | ED ---
Jerry Bledsoe Rebecca, scribed for John Arzate on 12/24/17 at 0107 . HPI Chest Pain - HPI Summary HPI Summary: Pt is a 62 y/o F who presents to ED c/o CP. Pain began tonight at 1930 after eating and the pt initially believed it to be "severe indigestion" with the pain worsening significantly at 0000, waking her up from sleep. Pain is midsternal and currently moderate, ranked 7/10. Additionally c/o diaphoresis ( resolved), dizziness, and nausea. PMHx HTN (controlled with medication), DM - BG was 350 tonight. Last cardiac stress test "a long time ago." - History of Current Complaint Chief Complaint: EDChestPainROMI Time Seen by Provider: 12/24/17 00:59 Hx Obtained From: Patient Onset/Duration: Still Present, Worse Since - 0000 Time of Onset: 19:30 Current Severity: Severe Pain Intensity: 7 Pain Scale Used: 0-10 Numeric Chest Pain Location: Mid Sternal Chest Pain Radiates: No Character: Other: - "severe indigestion" initially Associated Signs and Symptoms: Positive: Dizziness, Diaphoresis, Nausea - Allergy/Home Medications Allergies/Adverse Reactions: Allergies Allergy/AdvReac Type Severity Reaction Status Date / Time epinephrine Allergy Shakes Verified 12/24/17 00:46 PMH/Surg Hx/FS Hx/Imm Hx Endocrine/Hematology History: Reports: Hx Diabetes Cardiovascular History: Reports: Hx Hypertension Musculoskeletal History: Reports: Other Musculoskeletal History - Hx Back Fx Infectious Disease History: No Infectious Disease History: Denies: Traveled Outside the [place] in Last 30 Days - Family History Known Family History: Positive: Cardiac Disease - grandparents - Social History Alcohol Use: None Substance Use Type: Reports: None Smoking Status (MU): Never Smoked Tobacco Review of Systems Positive: Skin Diaphoresis Positive: Chest Pain Positive: Nausea Neurological: Other - Dizziness All Other Systems Reviewed And Are Negative: Yes Physical Exam - Summary Physical Exam Summary: Appearance: Well appearing, no pain distress Skin: warm, dry, reflects adequate perfusion Head/face: normal Eyes: EOMI, PHANI ENT: normal Neck: supple, non-tender Respiratory: CTA, breath sounds present Cardiovascular: RRR, pulses symmetrical, systolic murmur Abdomen: non-tender, soft Bowel: present Musculoskeletal: normal, strength/ROM intact Neuro: normal, sensory motor intact, A&Ox3 Triage Information Reviewed: Yes Vital Signs On Initial Exam: Initial Vitals Temp Pulse Resp BP Pulse Ox 95.6 F 50 20 117/54 100 12/24/17 00:46 12/24/17 00:46 12/24/17 00:46 12/24/17 00:46 12/24/17 00:46 Vital Signs Reviewed: Yes Diagnostics - Vital Signs Vital Signs Temp Pulse Resp BP Pulse Ox 12/24/17 00:46 95.6 F 50 20 117/54 100 - Laboratory Lab Results: Lab Results 12/24/17 12/24/17 12/24/17 Range/Units 01:20 01:20 01:20 WBC 8.6 (3.5-10.8) 10^3/ul RBC 3.64 L (4.0-5.4) 10^6/ul Hgb 9.9 L (12.0-16.0) g/dl Hct 30 L (35-47) % MCV 82 (80-97) fL MCH 27 (27-31) pg MCHC 33 (31-36) g/dl RDW 14 (10.5-15) % Plt Count 332 (150-450) 10^3/ul MPV 7.3 L (7.4-10.4) um3 Neut % (Auto) 45.5 (38-83) % Lymph % (Auto) 44.6 (25-47) % [place] % (Auto) 6.2 (0-7) % Eos % (Auto) 3.1 (0-6) % Baso % (Auto) 0.6 (0-2) % Absolute Neuts (auto) 3.9 (1.5-7.7) 10^3/ul Absolute Lymphs (auto) 3.8 (1.0-4.8) 10^3/ul Absolute Monos (auto) 0.5 (0-0.8) 10^3/ul Absolute Eos (auto) 0.3 (0-0.6) 10^3/ul Absolute Basos (auto) 0.1 (0-0.2) 10^3/ul Absolute Nucleated RBC 0 10^3/ul Nucleated RBC % 0 INR (Anticoag Therapy) 0.84 (0.77-1.02) APTT 29.6 (26.0-36.3) seconds Sodium (139-145) mmol/L Potassium (3.5-5.0) mmol/L Chloride (101-111) mmol/L Carbon Dioxide (22-32) mmol/L Anion Gap (2-11) mmol/L BUN (6-24) mg/dL Creatinine (0.51-0.95) mg/dL Est GFR ( Amer) (>60) Est GFR (Non-Af Amer) (>60) BUN/Creatinine Ratio (8-20) Glucose (70-100) mg/dL Lactic Acid (0.5-2.0) mmol/L Calcium (8.6-10.3) mg/dL Magnesium (1.9-2.7) mg/dL Total Bilirubin (0.2-1.0) mg/dL AST (13-39) U/L ALT (7-52) U/L Alkaline Phosphatase (34-104) U/L Total Creatine Kinase (10-223) U/L Troponin I (<0.04) ng/mL B-Natriuretic Peptide 101 H ( - 100) pg/mL Total Protein (6.4-8.9) g/dL Albumin (3.2-5.2) g/dL Globulin (2-4) g/dL Albumin/Globulin Ratio (1-3) 18 12/24/17 Range/Units 01:20 01:20 WBC (3.5-10.8) 10^3/ul RBC (4.0-5.4) 10^6/ul Hgb (12.0-16.0) g/dl Hct (35-47) % MCV (80-97) fL MCH (27-31) pg MCHC (31-36) g/dl RDW (10.5-15) % Plt Count (150-450) 10^3/ul MPV (7.4-10.4) um3 Neut % (Auto) (38-83) % Lymph % (Auto) (25-47) % [place] % (Auto) (0-7) % Eos % (Auto) (0-6) % Baso % (Auto) (0-2) % Absolute Neuts (auto) (1.5-7.7) 10^3/ul Absolute Lymphs (auto) (1.0-4.8) 10^3/ul Absolute Monos (auto) (0-0.8) 10^3/ul Absolute Eos (auto) (0-0.6) 10^3/ul Absolute Basos (auto) (0-0.2) 10^3/ul Absolute Nucleated RBC 10^3/ul Nucleated RBC % INR (Anticoag Therapy) (0.77-1.02) APTT (26.0-36.3) seconds Sodium 136 L (139-145) mmol/L Potassium 3.7 (3.5-5.0) mmol/L Chloride 100 L (101-111) mmol/L Carbon Dioxide 29 (22-32) mmol/L Anion Gap 7 (2-11) mmol/L BUN 36 H (6-24) mg/dL Creatinine 1.53 H (0.51-0.95) mg/dL Est GFR ( Amer) 44.2 (>60) Est GFR (Non-Af Amer) 34.4 (>60) BUN/Creatinine Ratio 23.5 H (8-20) Glucose 278 H (70-100) mg/dL Lactic Acid 1.1 (0.5-2.0) mmol/L Calcium 9.6 (8.6-10.3) mg/dL Magnesium 1.9 (1.9-2.7) mg/dL Total Bilirubin 0.30 (0.2-1.0) mg/dL AST 13 (13-39) U/L ALT 12 (7-52) U/L Alkaline Phosphatase 32 L (34-104) U/L Total Creatine Kinase 157 (10-223) U/L Troponin I 0.02 (<0.04) ng/mL B-Natriuretic Peptide ( - 100) pg/mL Total Protein 7.2 (6.4-8.9) g/dL Albumin 3.9 (3.2-5.2) g/dL Globulin 3.3 (2-4) g/dL Albumin/Globulin Ratio 1.2 (1-3) Result Diagrams: 12/24/17 01:20 12/24/17 01:20 Lab Statement: Any lab studies that have been ordered have been reviewed, and results considered in the medical decision making process. - Radiology CXR Xray Interpretation: No Acute Changes Radiology Interpretation Completed By: ED Physician - EKG 0053 Cardiac Rate: NL - 61 bpm EKG Rhythm: Sinus Rhythm EKG Interpretation: Inferior [place] 0116 Cardiac Rate: Bradycardia - 59 bpm EKG Rhythm: Sinus Bradycardia EKG Interpretation: Inferior [place] 0146 Cardiac Rate: NL - 73 bpm EKG Rhythm: Sinus Rhythm EKG Interpretation: Inferior [place] Re-Evaluation - Re-Evaluation First Eval Re-Evaluation Time: 01:18 Comment: Continues to c/o 7/10 chest pain. Second Eval Re-Evaluation Time: 01:42 Comment: Still having pain Chest Pain Course/Dx - Course Assessment/Plan: Pt is a 62 y/o F who presents to ED c/o CP. Pain began tonight at 1930 after eating and the pt initially believed it to be "severe indigestion " with the pain worsening significantly at 0000, waking her up from sleep. Pain is midsternal and currently moderate, ranked 7/10. Additionally c/o diaphoresis (resolved), dizziness, and nausea. PMHx HTN (controlled with medication), DM - BG was 350 tonight. Last cardiac stress test "a long time ago." Pt had 3 EKGs done showing inferior OH. Blood work done, troponin of 0.02. CXR reveals no acute findings. Discussed care of pt with Dr. Alexis who will see the pt in the ED. STEMI alert called at 0131. In the ED course, pt received Brilinta, Heparin , ASA, and Zofran. Pt will be admitted with Dx of STEMI. Critical care time of 60 minutes. Allergy noted. - Chest Pain Differential Diagnosis/HQI/PQRI: Acute OH, ACS, Angina, CHF, Chest Wall, Lower Respiratory Infection, Pulmonary Edema - Diagnoses Provider Diagnoses: STEMI (ST elevation myocardial infarction) During the Visit The Following Alert/Code Occurred: STEMI - 0131 - Provider Notifications Discussed Care Of Patient With: Paul Alexis Time Discussed With Above Provider: 01:13 Instructed by Provider To: Other - Will see the pt in the ED. - Critical Care Time Critical Care Time: 75-104 min - 60 minutes Discharge - Sign-Out/Discharge Documenting (check all that apply): Discharge/Admit/Transfer - Admit - Discharge Plan Condition: Critical Disposition: ADMITTED TO [facility] Referrals: No Primary Care Phys,NOPCP [Primary Care Provider] - - Billing Disposition and Condition Condition: CRITICAL Disposition: [facility] [place] The documentation as recorded by the Jerry crabtree Rebecca accurately reflects the service I personally performed and the decisions made by Carito paulino Emmanuel.
== END 2017-12-27 16:32 | disposition home or self-care (01) | DRG 174 ==
LOC: ED 00:44 → ICU 02:58 → MEDTELE 12-26 14:33
PROVIDERS: ADMIT Internal Medicine Cardiovascular Disease; ATTEND Internal Medicine Cardiovascular Disease
PROC: 02C03ZZ Extirpation of Matter from Coronary Artery, One Artery, Percutaneous Approach (ICD-10-PCS; 2017-12-24)
PROC: B2111ZZ Fluoroscopy of Multiple Coronary Arteries using Low Osmolar Contrast (ICD-10-PCS; 2017-12-24)
PROC: 4A023N7 Measurement of Cardiac Sampling and Pressure, Left Heart, Percutaneous Approach (ICD-10-PCS; 2017-12-24)
PROC: 027035Z Dilation of Coronary Artery, One Artery with Two Drug-eluting Intraluminal Devices, Percutaneous Approach (ICD-10-PCS; principal; 2017-12-24 02:00)
DX: I21.11 ST elevation (STEMI) myocardial infarction involving right coronary artery (principal); Q61.3 Polycystic kidney, unspecified; I25.10 Atherosclerotic heart disease of native coronary artery without angina pectoris; E03.9 Hypothyroidism, unspecified; E78.5 Hyperlipidemia, unspecified; M19.90 Unspecified osteoarthritis, unspecified site; E28.2 Polycystic ovarian syndrome; N18.3 Chronic kidney disease, stage 3 (moderate); I12.9 Hypertensive chronic kidney disease with stage 1 through stage 4 chronic kidney disease, or unspecified chronic kidney disease; E11.22 Type 2 diabetes mellitus with diabetic chronic kidney disease; E66.9 Obesity, unspecified; K21.9 Gastro-esophageal reflux disease without esophagitis; I08.0 Rheumatic disorders of both mitral and aortic valves; D63.1 Anemia in chronic kidney disease; Z82.0 Family history of epilepsy and other diseases of the nervous system; Z88.5 Allergy status to narcotic agent; Z88.8 Allergy status to other drugs, medicaments and biological substances; Z82.49 Family history of ischemic heart disease and other diseases of the circulatory system; Z90.49 Acquired absence of other specified parts of digestive tract; Z82.3 Family history of stroke; Z68.37 Body mass index [BMI] 37.0-37.9, adult; Z79.02 Long term (current) use of antithrombotics/antiplatelets; Z79.82 Long term (current) use of aspirin; Z79.4 Long term (current) use of insulin
CPT/HCPCS: 36415; 71045; 80048; 80053; 80061; 80074; 80076; 82550; 82553; 83036; 83605; 83735; 83880; 84443; 84484; 85025; 85610; 85730; 87641; 93005; 93306; 99285; A9270-GY; C1725; C1757; C1760; C1769; C1876; C1887; C8929; C9606-LC; J0153; J0583; J1327; J1644; J1940; J2250; J2405; J3010; J3475